=== PATIENT | female | born 1955 | race Native Hawaiian/Other Pacific Islander ===

== ENCOUNTER 2021-04-29 12:03 | Emergency (ER) | payer OTHER ==
[~2021-04-29] VITALS: Ht 157.5 cm; Wt 49.0 kg
[2021-04-29 12:08] VITALS: TEMP 98.9
[2021-04-29 13:01] VITALS: BP 109/63
== END 2021-04-29 13:01 | disposition home or self-care (01) ==
LOC: ED 12:03
DX: S51.811A Laceration without foreign body of right forearm, initial encounter (principal); W01.198A Fall on same level from slipping, tripping and stumbling with subsequent striking against other object, initial encounter; Y93.K1 Activity, walking an animal; Y92.89 Other specified places as the place of occurrence of the external cause
CPT/HCPCS: 99282